=== PATIENT | male | born 1970 | race Hispanic/Latino ===

== ENCOUNTER 2017-09-25 09:42 | Inpatient (IN) | payer SELFPAY ==
[~2017-09-25] VITALS: Ht 160 cm; Wt 60.0 kg
[2017-09-25] VITALS (12 sets, daily range): BP systolic 98–193; BP diastolic 63–112
--- NOTE | 2017-09-25 09:52 | NUR ---
TO TX ROOM WITH STEADY GAIT
--- NOTE | 2017-09-25 10:09 | NUR ---
PT RESTING ON STRETCHER, STATES NOT HAVING PRESCIRBED HOME MEDICATIONS SINCE BEING RELEASED FROM [facility] ONE MTH AGO, PT REQUESTING PAIN MEDS- WAITING ON MD ARRIVAL.
[2017-09-25 10:25] LABS: HEMATOCRIT 47.8 % (39.0-50.0); HEMOGLOBIN 16.5 g/dl (14.0-18.0); IMMATURE GRANULOCYTES 0.4 % (0.0-1.0); MEAN CELL VOLUME 95.6 fL CALC (80.0-100.0); MEAN CORPUSCULAR HGB CONC 34.5 g/L CALC (32.0-36.0); NEUT# 8.26 thou/uL (1.82-7.42); RED CELL DISTRI WIDTH 13.4 % (11.5-15.5); URINE BILIRUBIN - DIPSTICK NEGATIVE (NEGATIVE); URINE BLOOD DIPSTICK TRACE-INTACT (NEGATIVE); URINE CLARITY CLEAR; URINE COLOR YELLOW; URINE GLUCOSE - DIPSTICK >=1000 mg/dL (NEGATIVE); URINE KETONE 40 mg/dL (NEGATIVE); URINE LEUK ESTERASE NEGATIVE (NEGATIVE); URINE NITRITE - DIPSTICK NEGATIVE (Negative); URINE PH 5.5 (4.5-8.0); URINE PROTEIN - DIPSTICK NEGATIVE (NEG-TRACE); URINE SPECIFIC GRAVITY <=1.005; URINE UROBILINOGEN - DIPSTICK 0.2 E.U./dL (0.2)
[2017-09-25 10:29] LABS: ALBUMIN 4.8 g/dL (3.2-5.0); ALKALINE PHOSPHATASE 133 u/l (38-126); ANION GAP 25 (6-22 (CALC)); BILIRUBIN, TOTAL 1.2 mg/dL (0.0-1.4); BUN 13 mg/dL (9-20); BUN/CREATININE RATIO 16 (12-20 (CALC)); CARBON DIOXIDE 22 mmol/l (22-30); CHLORIDE 87 mmol/l (95-108); CREATININE 0.8 mg/dL (0.7-1.3); GFR > 60 ML/MIN (>=60 (CALC)); GFR FOR AFR.AMER. > 60 ML/MIN (>=60 (CALC)); LIPASE 590 u/l (23-300); POTASSIUM 4.6 mmol/l (3.5-5.1); SGOT/AST 19 u/l (17-59); SGPT/ALT 30 u/l (21-72); SODIUM 129 mmol/l (137-146); TOTAL PROTEIN 7.4 g/dL (6.3-8.2)
--- NOTE | 2017-09-25 11:01 | NUR ---
PT RESTING ON STRETCHER, WITH INSULIN DRIP INFUSING, IV SITE PATENT, PT STATES DECREASE IN PAIN. NO FURTHER COMPLAINTS VOICED.
--- NOTE | 2017-09-25 12:08 | NUR ---
PT APPERS RELAXED ON STRETCHER, BGA CHECKED AND REPORTED TO MD, INSULIN INFUSTION FLOWING, IV PATENT WITH NO PAIN, PT VOICED NO FURTHER COMPLAINTS.
--- NOTE | 2017-09-25 12:15 | NUR ---
SBAR PRINTED TO FLOOR
--- NOTE | 2017-09-25 12:37 | NUR ---
CALLED REPORT TO ICU, REPORT GIVEN TO DAVY CONNELLY FOR CONTINUATION OF CARE.
--- NOTE | 2017-09-25 12:41 | NUR ---
male pt received to ICU bed 2 via stretcher accompanied by Malgorzata Barboza RN in stable condition; ambulatory from stretcher to scale then bed with steady gait; admission assessment completed at this time; pt alert and oriented; c/c of stabbing abd pain radiating to spine rating 8/10 and vomiting; pt admits to pain at current; no n/v noted; resp even and unlabored; lungs clear bilat; skin color wnl; ra; hr reg; strong pulses; no edema noted; sr on monitor; bilat knee high elisa hose placed; abd soft/tender to bilat upper quads; bs present; pt admits to "watery black" stool 09/24/17; pt admits to voiding without pain or urine; no urine to inspect at this time; urinal at bedside; #20 in rac patent with ns at kvo/ insulin gtt at 5 units/hr; no redness or edema noted at site; few scraps noted to ble; pt admits to being a diabetic "all his life"; admits to quitting smoking and consuming ETOH as of "3 days ago"; pt admits to been released from long term approx 1 month ago; states he was released with a 30 days supply of medications but medication were misplaced; plan of care/ meds explained; pt oriented to bed and call light system; will continue to monitor
--- NOTE | 2017-09-25 12:53 | NUR ---
PT TRANSPORTED TO ICU VIA STRETCHER WITH BENCH GRINDER WITH OUT ISSUES BY RN .,
--- NOTE | 2017-09-25 13:10 | NUR ---
Dr Connor notified of pt arrival to unit; informed MD of pt with complaints of abd pain rating 8/10; informed MD of need for orders; informed MD of last glucose 359; awaiting orders;
--- NOTE | 2017-09-25 14:00 | NUR ---
awake in bed; pt continues to complain of abd pain rating 9/10; accucheck 309; ivf infusing infusing at 100cc/hr; call light within reach; will continue to monitor
--- NOTE | 2017-09-25 14:10 | NUR ---
Dr Connor notified of elevated bp; orders received
[2017-09-25 14:20] LABS: BUN 13 mg/dL (9-20); BUN/CREATININE RATIO 20 (12-20 (CALC)); CARBON DIOXIDE 25 mmol/l (22-30); CREATININE 0.7 mg/dL (0.7-1.3); GFR > 60 ML/MIN (>=60 (CALC)); GFR FOR AFR.AMER. > 60 ML/MIN (>=60 (CALC)); POTASSIUM 3.9 mmol/l (3.5-5.1)
[2017-09-25 14:29] LABS: ANION GAP 19 (6-22 (CALC)); CHLORIDE 99 mmol/l (95-108); SODIUM 139 mmol/l (137-146)
--- NOTE | 2017-09-25 15:01 | NUR ---
pt educated on plan of care; accucheck of 247; medicated with levemir as per orders; po fluids provided; pt cont with complaints of pain; states morphine did not help; pt admits that the medication given in ER worked well; will notify MD;
--- NOTE | 2017-09-25 16:02 | NUR ---
awake in bed; complaints of abd pain rating 10/10; medicated with toradol as per orders; sr on monitor; iv patent; insulin gtt discontinued; iv patent; elevated BP; medicated with apresoline as per orders; accucheck of 204; call light within reach; will continue to monitor
--- NOTE | 2017-09-25 18:08 | NUR ---
resting in bed with eyes closed; no distress noted; iv patent; fluids infusing without complication; no redness or edema noted at site; sr on monitor; bed in lowest position; call light within reach
--- NOTE | 2017-09-25 19:00 | NUR ---
REPORT FROM Lalito OCONNOR RN. ASSUMED PT. CARE.
--- NOTE | 2017-09-25 19:45 | NUR ---
PT. FOUND AWAKE, ALERT, ORIENTED X 3. RESPS EVEN AND UNLABORED. SKIN WARM AND DRY. AFEBRILE. C/O 01/13 RT. SIDED ABD PAIN WITH PAIN WRAPPING AROUND TO RT. SIDE/BACK. MAE. FERNÁNDEZ. DENIES OTHER COMPLAINTS. IV FLUIDS INFUSING AT THIS TIME WITHOUT SX OF INFILTRATION OR EXTRAVASATION. CALL LIGHT REMAINS WITHIN REACH. WILL CONTINUE TO ASSESS.
--- NOTE | 2017-09-25 21:30 | NUR ---
PT. RESTING IN BED IN MILD DISCOMFORT. UPDATED ON PLAN OF CARE AND MEDICATION DUE AT 2200. VERBALIZES UNDERSTANDING OF SUCH. DENIES OTHER COMPLAINTS OR NEEDS. WILL CONTINUE TO ASSESS.
--- NOTE | 2017-09-25 22:39 | NUR ---
PT. RESTING WITH EYES CLOSED, SNORING RESPIRATIONS. BP IMPROVED AFTER APRESOLINE ADMINISTRATION 131/74, HR SINUS AT 87. CALL LIGHT REMAINS WITHIN REACH. WILL CONTINUE TO ASSESS.
[2017-09-26] VITALS (11 sets, daily range): BP systolic 140–180; BP diastolic 87–107
--- NOTE | 2017-09-26 00:30 | NUR ---
PT. RESTING IN BED WITH EYES CLOSED. NO DISTRESS. VSS.
--- NOTE | 2017-09-26 02:15 | NUR ---
PT. RESTING WITH EYES CLOSED. RESPS REMAIN EVEN AND UNLABORED. PT. STATES PAIN HAS STARTED TO RETURN AT THIS TIME. MEDICATED WITH MORPHINE PER PHYSICIAN ORDERS. PT. REPORTS MILD IMPROVEMENT WITH MORPHINE, BUT THE PAIN RETURNS QUICKLY AFTER ADMINISTRATION. CALL LIGHT REMAINS WITHIN REACH. UPDATED ON FURTHER PLAN OF CARE. WILL CONTINUE TO ASSESS.
--- NOTE | 2017-09-26 03:55 | NUR ---
PT. WITH NAUSEA AT THIS TIME. DRY HEAVES. NO EMESIS NOTED. NEW ORDERS RECEIVED. IV FLUIDS CONTINUE WITHOUT SX OF INFILTRATION OR EXTRAVASATION. MEDICATED FOR C/O PAIN AT THIS TIME. WILL CONTINUE TO ASSESS.
[2017-09-26 05:28] LABS: HEMATOCRIT 44.4 % (39.0-50.0); HEMOGLOBIN 15.6 g/dl (14.0-18.0); IMMATURE GRANULOCYTES 0.3 % (0.0-1.0); MEAN CELL VOLUME 94.3 fL CALC (80.0-100.0); MEAN CORPUSCULAR HGB 33.1 pG CALC (26.0-32.0); MEAN CORPUSCULAR HGB CONC 35.1 g/L CALC (32.0-36.0); NEUT# 9.71 thou/uL (1.82-7.42); RED BLOOD COUNT 4.71 mill/uL (4.70-6.10); RED CELL DISTRI WIDTH 13.3 % (11.5-15.5)
[2017-09-26 05:39] LABS: ANION GAP 17 (6-22 (CALC)); BUN 11 mg/dL (9-20); BUN/CREATININE RATIO 20 (12-20 (CALC)); CARBON DIOXIDE 23 mmol/l (22-30); CHLORIDE 101 mmol/l (95-108); CREATININE 0.6 mg/dL (0.7-1.3); GFR > 60 ML/MIN (>=60 (CALC)); GFR FOR AFR.AMER. > 60 ML/MIN (>=60 (CALC)); MAGNESIUM 1.7 mg/dL (1.6-2.3); POTASSIUM 3.4 mmol/l (3.5-5.1); SODIUM 138 mmol/l (137-146)
--- NOTE | 2017-09-26 05:51 | NUR ---
PT. RESTING IN BED IN NO DISTRESS. RESPS REMAIN EVEN AND UNLABORED. SKIN WARM AND DRY. HR REMAINS STABLE. BP STABLE. CALL LIGHT REMAINS WITHIN REACH. NO EMESIS NOTED. WILL CONTINUE TO ASSESS.
[2017-09-26 06:32] LABS: CHOLESTEROL HDL RATIO 4.5 (<4.4 (CALC))
--- NOTE | 2017-09-26 07:06 | NUR ---
pt awake in bed; no apparent distress noted; assessment completed at this time; pt alert and oriented; complaints of upper quad abd pain rating 10/10; pain med schedule reviewed; will medicate accordingly; no n/v noted at present; resp even and unlabored; lungs clear; skin color wnl; ra; hr reg; strong pulses; no edema noted; sr on monitor; abd soft/tender with bs present; no bm noted per verse writer; no urine to inspect at this time; urinal at bedside; #20 in rac patent with ivf infusing without complication; no redness or edema noted at site; plan of care/am meds explained; accucheck of 199; excessive belching noted; call light within reach; will continue to monitor
--- NOTE | 2017-09-26 08:03 | NUR ---
awake in bed; continues with complaints of abd pain; medicated with morphine as per orders; iv patent; eating breakfast; sr on monitor; call light within reach; will continue to monitor
--- NOTE | 2017-09-26 08:43 | NUR ---
Dr Connor at bedside to discuss plan of care
--- NOTE | 2017-09-26 08:44 | NUR ---
ivf increased to 150cc/hr by Dr Connor
[2017-09-26] MEDS ORDERED: METFORMIN500 MG PO (08:51)
--- NOTE | 2017-09-26 10:10 | NUR ---
awake in bed; admits to pain rating 10/10; medicated with toradol as per orders; iv flushed/resistance noted; sr on monitor; plan of care explained; call light within reach; will continue to monitor
--- NOTE | 2017-09-26 12:05 | NUR ---
awake in bed; no distress noted; sr on monitor; iv patent; no redness or edema noted at site; call light within reach; will continue to monitor
[2017-09-26] MEDS ORDERED: GLIMEPIRIDE2 MG PO (13:21)
[2017-09-26] MEDS ORDERED: METFORMIN1000 MG PO (13:21)
[2017-09-26] MEDS ORDERED: AMLODIPINE BESYL5 MG PO (13:21)
[2017-09-26] MEDS ORDERED: LISINOPRIL20 M1 PO (13:21)
[2017-09-26] MEDS ORDERED: ATORVASTATIN CA10 MG PO (13:21)
[2017-09-26] MEDS ORDERED: PRILOSEC20 MG PO (13:21)
[2017-09-26] MEDS ORDERED: TRAMADOL HCL50 MG PO (13:22)
--- NOTE | 2017-09-26 13:54 | NUR ---
Alem Motta at bedside; will continue to monitor
--- NOTE | 2017-09-26 14:01 | NUR ---
awake certification technician light; requesting pain medication; medicated with tramadol as per orders; pt then requesting morphine; iv locked; no redness or edema noted at site; sr on monitor; call light within reach; will continue to monitor
--- NOTE | 2017-09-26 14:35 | NUR ---
Dr Connor notified by contract technical writer of elevated BP; informed manual BP 180/100; hydralazine administered as per orders; order received to discharge pt this evening pending BP
--- NOTE | 2017-09-26 15:59 | NUR ---
Kalia Ferrara at bedside to deliver prescribed/new prescriptions
--- NOTE | 2017-09-26 16:32 | NUR ---
pt with complaints of abd pain; medicated with toradol as per orders; pt informs this screenplay writer he is unable to find a ride home (John Ledesma); pt requesting to stay until "I'm calmed down"; will notify MD of pt concerns
--- NOTE | 2017-09-26 16:58 | NUR ---
per Dr Connor, pt to be discharged in AM
--- NOTE | 2017-09-26 18:15 | NUR ---
awake in bed; rates abd pain as 8/10, sharp; pt request "IV" medication cause it works better; this race and sports book writer explained discharge is planned for am d/t inability to fin tranportation; pt admits he will have a ride in the am; iv intact; sr on monitor; medication provided by Kalia removed and placed in med room; bed in lowest position; call light within reach;
--- NOTE | 2017-09-26 19:45 | NUR ---
PT ROOM 272 VIA WC. PT TTRANSFERRED TO BED WITH NO ASSISTANCE. PT AMBULATED TO SHOWER. WILL CONTINUE TO MONITOR
--- NOTE | 2017-09-26 20:15 | NUR ---
PT SITTING UP IN BED. PT IS ALERT AND ORIENTED X3. PERRLA. RESP ARE EVEN AND UNLABORED. NO DISTRESS NOTED. LUNGS ARE CLEAR. HR REGULAR. PULSES PALPABLE THROUGHOUT. NO EDEMA NOTED. BS ACTIVE. PT WITH COMPLAINTS OF ABDOMINAL PAIN. WILL MEDICATED PER MD ORDERS. #20 RIGHT HAND. SALINE LOCKED. NO REDNESS OR EDEMA NOTED. WILL CONTINUE TO MONITOR
--- NOTE | 2017-09-27 | NUR ---
PT RESTING IN BED WITH EYES CLOSED. RESP ARE EVEN AND UNLABORED. NO DISTRESS NOTED. WILL CONTINUE TO MONITOR
--- NOTE | 2017-09-27 04:00 | NUR ---
PT RESTING IN BED WITH EYES CLOSED. RESP ARE EVEN AND UNLABORED. NO DISTRESS NOTED. WILL CONTINUE TO MONITOR
[2017-09-27 04:13] VITALS: BP 133/90
--- NOTE | 2017-09-27 07:00 | NUR ---
RECEIVED BEDSIDE REPORT FROM YANET CONNELLY. RESTING IN BED WITH EYES CLOSED, AWAKENS EASILY. RESPS EVEN AND UNLABORED ON ROOM AIR. DENIES PAIN OR DISCOMFORT. PLAN OF CARE DISCUSSED. SAFETY PRECAUTIONS REINFORCED. BED IN LOWEST POSITION WITH WHEELS LOCKED. CALL LIGHT WITHIN REACH. ENCOURAGED PT TO CALL FOR ANY NEEDS.
[2017-09-27 07:38] VITALS: BP 134/88
[2017-09-27 07:51] LABS: HEMATOCRIT 43.9 % (39.0-50.0); HEMOGLOBIN 15.4 g/dl (14.0-18.0); IMMATURE GRANULOCYTES 0.3 % (0.0-1.0); MEAN CELL VOLUME 95.6 fL CALC (80.0-100.0); MEAN CORPUSCULAR HGB 33.6 pG CALC (26.0-32.0); MEAN CORPUSCULAR HGB CONC 35.1 g/L CALC (32.0-36.0); NEUT# 8.93 thou/uL (1.82-7.42); RED BLOOD COUNT 4.59 mill/uL (4.70-6.10); RED CELL DISTRI WIDTH 13.8 % (11.5-15.5)
[2017-09-27 07:53] VITALS: BP 134/88
[2017-09-27 08:12] LABS: ANION GAP 15 (6-22 (CALC)); BUN 12 mg/dL (9-20); BUN/CREATININE RATIO 24 (12-20 (CALC)); CARBON DIOXIDE 21 mmol/l (22-30); CHLORIDE 105 mmol/l (95-108); CREATININE 0.5 mg/dL (0.7-1.3); GFR > 60 ML/MIN (>=60 (CALC)); GFR FOR AFR.AMER. > 60 ML/MIN (>=60 (CALC)); LIPASE 591 u/l (23-300); POTASSIUM 3.9 mmol/l (3.5-5.1); SODIUM 138 mmol/l (137-146)
--- NOTE | 2017-09-27 10:20 | NUR ---
MEDICATED WITH TRAMADOL IVP FOR C/O 9/10 ABD PAIN. CALL LIGHT WITHIN REACH. WILL CONTINUE TO MONITOR.
--- NOTE | 2017-09-27 12:40 | NUR ---
DR COLLAZO IN WITH PT, NEW ORDERS RECEIVED.
--- NOTE | 2017-09-27 14:16 | NUR ---
Saw pt for discharge medication education. Explained the importance of timing with omeprazole and glimepiride. Informed pt on current A1c and BG and explained what that means. Educated pt about s/sx of hypOglycemia. Educated pt how to assess and treat hypoglycemia. Pt does not have glucometer. Worked with case management to get pt glucometer and test strips at discount. Informed pt that many of his medications are free at [facility]. Pt verbalized understanding and did not have additional questions or concerns.
--- NOTE | 2017-09-27 15:07 | NUR ---
IV site discontinued, cath intact. No edema , no redness, voices no discomfort.
== END 2017-09-27 15:15 | disposition home or self-care (01) | DRG 637 ==
LOC: ED 09:42 → ED-I 12:00 → ED 12:16 → ICU 12:17 → MS2 09-26 19:30
PROVIDERS: Emergency Medicine; Nurse Practitioner Family; ADMIT Internal Medicine; ATTEND Internal Medicine
PROC: 3E0234Z Introduction of Serum, Toxoid and Vaccine into Muscle, Percutaneous Approach (ICD-10-PCS; principal; 2017-09-26)
DX: E11.65 Type 2 diabetes mellitus with hyperglycemia (principal); K85.20 Alcohol induced acute pancreatitis without necrosis or infection; I16.0 Hypertensive urgency; I10 Essential (primary) hypertension; E86.0 Dehydration; E78.1 Pure hyperglyceridemia; F10.20 Alcohol dependence, uncomplicated; F17.210 Nicotine dependence, cigarettes, uncomplicated; F12.90 Cannabis use, unspecified, uncomplicated; Z91.14 Patient's other noncompliance with medication regimen; Z23 Encounter for immunization
CPT/HCPCS: S0164